=== PATIENT | male | born 1945 | race American Indian/Alaskan Native ===

== ENCOUNTER 2017-01-25 16:53 | Emergency (ER) | payer SELFPAY ==
[2017-01-25 17:33] LABS: Urine Drugs of Abuse Note Disclamer
[2017-01-25 17:41] LABS: Bilirubin,Urine NEG (Negative); Blood,Urine NEG (Negative); Ketones,Urine NEG (Negative); Leukocyte Esterase,Urine NEG (Negative); Mucus,Urine FEW /HPF; Nitrite,Urine NEG (Negative); Urobilinogen,Urine < 2.0 mg/dL (<2.0); WBC,Urine < 1.0 /HPF (0.0-6.0)
--- NOTE | 2017-01-25 19:24 | Emergency Department Report ---
HPI - General Chief Complaint: Psych Time Seen by Provider: 01/25/17 17:39 - HPI HPI: This is a 71-year-old Afro-Tristanian male who presents the emergency department via police from a motel with the patient appears to cut kicked out and became very verbally abusive. The patient says that he is here because he has a "cold " and says that he is not sure who brought him in. However once the police were mentioned, he does admit to seeing them at the hotel although he denies being kicked out. He goes on some tangential thoughts and seems to be fixated on losing money or having money taken away from him. Family eventually came bedside and says that he has a history of schizophrenia which does appear to be consistent with his paranoid state. He denies any auditory hallucinations, suicidal or homicidal ideations. ED Past Medical Hx - Past Medical History Additional medical history: denies - Surgical History Additional Surgical History: denies - Social History Smoking Status: Current Every Day Smoker Substance Use Type: None - Medications Home Medications: Home Medications Medication Instructions Recorded Confirmed Last Taken Type Unobtainable 01/25/17 01/25/17 Unknown History ED Review of Systems ROS: Stated complaint: 1013 Other details as noted in HPI Comment: All other systems reviewed and negative Constitutional: denies: chills, fever Eyes: denies: eye pain, eye discharge, vision change ENT: denies: ear pain, throat pain Respiratory: denies: cough, shortness of breath, wheezing Cardiovascular: denies: chest pain, palpitations Gastrointestinal: denies: abdominal pain, nausea, diarrhea Genitourinary: denies: urgency, dysuria Musculoskeletal: denies: back pain, joint swelling, arthralgia Skin: denies: rash, lesions Neurological: denies: headache, weakness, paresthesias Psychiatric: other (paranoia, tangential thoughts). denies: auditory hallucinations, homicidal thoughts, suicidal thoughts Physical Exam - Physical Exam Vital Signs: Vital Signs 01/25/17 01/25/17 17:03 18:19 Temperature 98.4 F Pulse Rate 84 Respiratory 18 18 Rate Blood Pressure 167/89 O2 Sat by Pulse 100 100 Oximetry Physical Exam: GENERAL: The patient is well-developed well-nourished. HEENT: Normocephalic. Atraumatic. Extraocular motions are intact. Patient has moist mucous membranes. Pupils equal reactive to light bilaterally. NECK: Supple. Trachea is midline. CHEST/LUNGS: Clear to auscultation. There is no respiratory distress noted. HEART/CARDIOVASCULAR: Regular. There is no tachycardia. There is no gallop rub or murmur. ABDOMEN: Abdomen is soft, nontender. Patient has normal bowel sounds. There is no abdominal distention. SKIN: Skin is warm and dry. NEURO: The patient is awake, alert. The patient is cooperative. The patient has no focal neurologic deficits. The patient has normal speech. MUSCULOSKELETAL: There is no tenderness or deformity. There is no limitation range of motion. There is no evidence of acute injury. PSYCH: Patient has pressured speech and tangential thoughts. ED Course Vital Signs 01/25/17 01/25/17 17:03 18:19 Temperature 98.4 F Pulse Rate 84 Respiratory 18 18 Rate Blood Pressure 167/89 O2 Sat by Pulse 100 100 Oximetry ED Medical Decision Making - Lab Data Result diagrams: 01/25/17 19:18 01/25/17 19:18 - Medical Decision Making 71-year-old male presents via PD after he was allegedly kicked out of a motel and became verbally aggressive. In the emergency department, the patient is able to answer some questions appropriately but does display some severe paranoia about losing money or getting money taken away. He has pressured speech and appears to have tangential thoughts. Family was able to give some history and he appears to have a history of schizophrenia. While he does not have any suicidal or homicidal ideations, patient does not appear to be in a state of mind where he would be able to take care of himself and complete his ADLs. For this reason the patient has been made a 1013 for psychosis. His labs are mostly unremarkable other than some urine drug screen positive for barbituates. Vital signs stable throughout his ED course. Patient is medically cleared for psychiatric placement. - Differential Diagnosis schizophrenia, schizoaffective, bipolar disorder, depression, substance abu Critical Care Time: No Critical care attestation.: If time is entered above; I have spent that time in minutes in the direct care of this critically ill patient, excluding procedure time. ED Disposition Clinical Impression: Psychosis Qualifiers: Psychosis type: other Qualified Code(s): F28 - Other psychotic disorder not due to a substance or known physiological condition Hypertension Qualifiers: Hypertension type: essential hypertension Qualified Code(s): I10 - Essential ( primary) hypertension Disposition: DC/TX PSY HOSP/PSY UNIT Is pt being admited?: No Condition: Stable Instructions: Hypertension (ED) Referrals: PRIMARY CARE, [Primary Care Provider] - 3-5 Days Time of Disposition: 21:07
[2017-01-25 19:48] LABS: Basophils % (Auto) 0.9 % (0.0-1.8); Eosinophils % (Auto) 0.5 % (0.0-4.3); Hematocrit 37.5 % (35.5-45.6); Hemoglobin 12.3 gm/dl (11.8-15.2); Mean Corpuscular HGB Conc 33 % (32-34); Mean Corpuscular Hemoglobin 28 pg (28-32); Mean Corpuscular Volume 87 fl (84-94); Platelet Count 183 K/mm3 (140-440); Red Blood Count 4.33 M/mm3 (3.65-5.03); Red Cell Distribution Width 15.4 % (13.2-15.2); White Blood Count 7.7 K/mm3 (4.5-11.0)
[2017-01-25 19:54] LABS: Anion Gap 20 mmol/L; Blood Urea Nitrogen 8 mg/dL (9-20); Calcium 9.1 mg/dL (8.4-10.2); Carbon Dioxide 25 mmol/L (22-30); Chloride 101.3 mmol/L (98-107); Glucose 112 mg/dL (75-100); Potassium 4.1 mmol/L (3.6-5.0); Sodium 142 mmol/L (137-145)
--- NOTE | 2017-01-26 16:00 | Consultation ---
History of Present Illness - Reason for Consult Consult date: 01/26/17 Reason for consult: Psychiatry Follow-up Requesting physician: DINORA CUMMINGS - Chief Complaint Chief complaint: "I don't need to be here" - History of Present Psychiatric Illness This is a 71-year-old Afro-Nepalese male who presents the emergency department via police from a motel with the patient appears to cut kicked out and became very verbally abusive. Today patient is loud and uncooperative during assessment. He did state that he was asked to leave his hotel and also he stated that his money is "messed" up currently. After telling me that, he stated , "Leave me alone." Also, the patient stated, "I told the other anupama I had a cold and that's why I came to the hospital." After making that statement, he would not answer anymore of my questions. He turned his head away from me and started talking to the wall. Per the set staff fitter, no behavior and distress noted. No gestures of SI/HI's Medications and Allergies Allergies Allergy/AdvReac Type Severity Reaction Status Date / Time No Known Allergies Allergy Unverified 01/25/17 17:14 Home Medications Medication Instructions Recorded Confirmed Last Taken Type Unobtainable 01/25/17 01/25/17 Unknown History Mental Status Exam - Vital signs Last Vital Signs Temp 98 F 01/26/17 07:09 Pulse 92 H 01/25/17 19:39 Resp 18 01/26/17 10:00 BP 144/82 01/26/17 07:09 Pulse Ox 97 01/26/17 10:00 - Exam Narrative exam: ROS (+) psychosis MSE: Appearance: Disheveled, uncooperative Behavior: poor eye contact Speech: loud rate and tone, mumbles Mood: "why you ask" Affect: blunted, mood congruent Thought Process: tangential Thought Content: no gestures of SI/HI's and AVH's Motor Activity: lying down Cognition: a/o x2 Insight: poor Judgment: poor Results Result Diagrams: 01/25/17 19:18 01/25/17 19:18 Abnormal lab results 01/25/17 01/25/17 Range/Units 19:18 19:18 RDW 15.4 H (13.2-15.2) % [place] % (Auto) 7.8 H (0.0-7.3) % Seg Neutrophils % 75.8 H (40.0-70.0) % BUN 8 L (9-20) mg/dL Glucose 112 H (75-100) mg/dL All other labs normal. Assessment and Plan Assessment and plan: Impression: Unspecified Psychotic DO. This is a 71-year-old Afro-Nepalese male who presents the emergency department via police from a motel with the patient appears to cut kicked out and became very verbally abusive. Today patient is loud and uncooperative during assessment. He did state that he was asked to leave his hotel and also he stated that his money is "messed" up now. After telling me that, he stated, "Leave me alone." Also, the patient stated, "I told the other anupama I had a cold and that's why I came to the hospital." No gestures of SI/HI's. DD: Schizophrenia, Schizoaffective DO Recommendation/Plan: Continue 1013 with placement to inpatient psy services. Start Zyprexa 5 mg PO HS for psychosis and Cogentin 0.5 mg PO HS for EPS prevention. Discussed possible metabolic side effects of Zyprexa with patient.
--- NOTE | 2017-01-26 16:37 | Event Note ---
Date: 01/26/17 Patient denies any psy inpatient or outpatient services. Also he denies a fam hx of psy.
[2017-01-26] MEDS: COGENTIN PO SCH (22:20)
--- NOTE | 2017-01-27 11:32 | Progress Note ---
Subjective - Reason for Consult Consult date: 01/27/17 Reason for consult: psychiatric follow up - Chief Complaint Chief complaint: "GET out" This is a 71-year-old Afro-Cameroonian male who presented to the emergency department via police from a motel. Today patient is loud and uncooperative during assessment. He repeatedly stated to get out and leave him alone, "I have a cold." Mental Status Exam - Vital signs Last Vital Signs Temp 98 F 01/26/17 07:09 Pulse 92 H 01/25/17 19:39 Resp 18 01/26/17 10:00 BP 144/82 01/26/17 07:09 Pulse Ox 97 01/26/17 10:00 - Exam Orientation: place, person Affect: agitated Mood: congruent with affect Thought content: paranoia Thought Process: Tangential Perceptions: other (patient uncooperative with exam) Speech: pressured Concentration: distractible Motor activity: restless Level of consciousness: alert Appetite: decreased Interaction: uncooperative Assessment and Plan Impression: Psychosis, belligerent/uncooperative DD: Schizophrenia, Schizoaffective DO Recommendation/Plan: Continue 1013 with placement to inpatient psy services. Continue Zyprexa 5 mg PO HS for psychosis and Cogentin 0.5 mg PO HS for EPS prevention.
[2017-01-27] MEDS: COGENTIN PO SCH (22:45)
--- NOTE | 2017-01-28 08:47 | Progress Note ---
Subjective - Reason for Consult Consult date: 01/28/17 Reason for consult: Psychiatry Follow-up - Chief Complaint Chief complaint: "I don't want to talk" This is a 71-year-old Afro-Togolese male who presented to the emergency department via police from a motel. Today patient is loud, belligerent, and uncooperative during assessment. He continues to talk about having a "cold" and no one is doing anything about it. He stated, I don't take psy medications and leave me alone." He refused to talk after that statement. No gestures of SI/HI' s. When I walked in his room he was talking to himself, possible responding to internal stimuli. Patient refused his psy medications last night. Mental Status Exam - Vital signs Last Vital Signs Temp 98 F 01/26/17 07:09 Pulse 92 H 01/25/17 19:39 Resp 18 01/26/17 10:00 BP 144/82 01/26/17 07:09 Pulse Ox 97 01/26/17 10:00 - Exam Narrative exam: MSE: Appearance: Disheveled, uncooperative Behavior: poor eye contact Speech: loud rate and tone Mood: "nothing is wrong with me" Affect: agitated Thought Process: tangential Thought Content: no gestures of SI/HI's and AVH's Motor Activity: lying down Cognition: a/o x2 Insight: poor Judgment: poor Assessment and Plan Impression: This is a 71-year-old Afro-Togolese male who presented to the emergency department via police from a motel. Today patient is loud, belligerent , and uncooperative during assessment. He continues to talk about having a "cold " and no one is doing anything about it. He stated, I don't take psy medications and leave me alone." Refused medications last night. No gestures of SI/HI's. Could not complete MMSE with patient, he refused to participate. Collateral Information from Maylin Yung [phone] - Per his niece, the patient has been to [place] [id number]. She stated that he has never been complaint with his psy medications. Also, she is the patient's payee. Recommendation/Plan: Continue 1013 with placement to inpatient psy services. Continue Zyprexa 5 mg PO HS for psychosis and Cogentin 0.5 mg PO HS for EPS prevention. Give niece a call prior to patient being transported to the inpatient setting.
[2017-01-28] MEDS: COGENTIN PO SCH (23:24)
--- NOTE | 2017-01-29 12:07 | Progress Note ---
Subjective - Reason for Consult Consult date: 01/29/17 Reason for consult: psychiatric follow up - Chief Complaint Chief complaint: "Get out" This is a 71-year-old Afro-Palauan male who presented to the emergency department via police from a motel. Today patient is loud, belligerent, and uncooperative during assessment. He began yelling and proceeded to get out of bed when I entered the room. He continued to yell for a minute or so following my exit. There was no display of physical aggression. He took medications last night. Mental Status Exam - Vital signs Last Vital Signs Temp 98.4 F 01/29/17 09:04 Pulse 96 H 01/29/17 09:04 Resp 18 01/29/17 09:57 BP 159/87 01/29/17 09:04 Pulse Ox 98 01/29/17 09:57 - Exam Narrative exam: Appearance: Disheveled Behavior: poor eye contact, uncooperative Speech: loud rate and tone Mood: angry Affect: agitated Thought Process: tangential Thought Content: unable to assess Motor Activity: no abnormal movements observed Cognition: a/o x2 Insight: poor Judgment: poor Assessment and Plan Impression: Psychosis, belligerent/uncooperative DD: Schizophrenia, Schizoaffective DO Recommendation/Plan: Continue 1013 with placement to inpatient psy services. Continue Zyprexa 5 mg PO HS for psychosis and Cogentin 0.5 mg PO HS for EPS prevention.
[2017-01-29] MEDS: COGENTIN PO SCH (22:07)
[2017-01-30] MEDS: COGENTIN PO SCH (22:05)
--- NOTE | 2017-01-31 08:07 | Progress Note ---
Subjective - Reason for Consult Consult date: 01/31/17 Reason for consult: Psychiatry Follow-up - Chief Complaint Chief complaint: "What do you want" This is a 71-year-old Afro-Filipino male who presented to the emergency department via police from a motel. Today patient started yelling when I arrived to his room. He continues to state, "I came here to treat a cold." Patient refused to answer anymore questions. Per RN notes, not distress or behavior issues overnight. Patient took his psy medications last night. Mental Status Exam - Vital signs Last Vital Signs Temp 98.4 F 01/31/17 00:00 Pulse 68 01/31/17 00:00 Resp 18 01/31/17 00:00 BP 138/90 01/31/17 00:00 Pulse Ox 99 01/31/17 00:00 - Exam Narrative exam: MSE: Appearance: Disheveled, uncooperative Behavior: poor eye contact Speech: loud rate and tone Mood: "what do you want" Affect: agitated Thought Process: tangential Thought Content: no gestures of SI/HI's and AVH's Motor Activity: lying down Cognition: a/o x2 Insight: poor Judgment: poor Assessment and Plan Impression: This is a 71-year-old Afro-Filipino male who presented to the emergency department via police from a motel. Today patient started yelling when I arrived to his room. He continues to state, "I came here to treat a cold. " No gestures of SI/HI's and AVH's. Collateral Information from Jazmyne Dilshad [phone] - Per his niece, the patient has been to [place] [address]. She stated that he has never been complaint with his psy medications. Also, she is the patient's payee. Recommendation/Plan: Continue 1013 with placement to inpatient psy services. Continue Zyprexa 5 mg PO HS for psychosis and Cogentin 0.5 mg PO HS for EPS prevention. Give niece a call prior to patient being transported to the inpatient setting.
[2017-02-01] MEDS: COGENTIN PO SCH ×3 (00:49→22:40)
--- NOTE | 2017-02-01 08:49 | Progress Note ---
Subjective - Reason for Consult Consult date: 02/01/17 Reason for consult: Psychiatry Follow-up - Chief Complaint Chief complaint: "How are you" This is a 71-year-old Afro-Togolese male who presented to the emergency department via police from a motel. Today patient is calm and cooperative during assessment. This is the first time that he would allow me to talk with him. He stated that he wanted more food to eat, because he was "hungry." He still stated that he came to [facility] to treat a "cold." He stated that his niece Maylin Yung is his payee. He denies any side effects from his psy medications. He denies SI/HI's, AVH's, sleep disturbance, depression, or a poor appetite. No reports of erratic behavior overnight. Mental Status Exam - Vital signs Last Vital Signs Temp 98.8 F 01/31/17 22:00 Pulse 78 01/31/17 22:00 Resp 18 01/31/17 22:00 BP 134/62 01/31/17 22:00 Pulse Ox 100 01/31/17 22:00 - Exam Narrative exam: MSE: Appearance: calm, cooperative Behavior: good eye contact Speech: regular rate and tone Mood: "okay" Affect: flat Thought Process: circumstantial Thought Content: denies SI/HI's and AVH's Motor Activity: ambulatory Cognition: a/o x2 Insight: limited Judgment: limited Assessment and Plan Impression: This is a 71-year-old Afro-Togolese male who presented to the emergency department via police from a motel. Today patient is calm and cooperative during assessment. This is the first time that he would allow me to talk with him. He stated that he wanted more food to eat, because he was "hungry." He still stated that he came to [facility] to treat a "cold." He denies SI/ HI's and AVH's. Collateral Information from Maylin Yung [phone] - Per his niece, the patient has been to [place] [id number]. She stated that he has never been complaint with his psy medications. Also, she is the patient's payee. Recommendation/Plan: Continue 1013 with placement to inpatient psy services. Continue Zyprexa 5 mg PO HS for psychosis and Cogentin 0.5 mg PO HS for EPS prevention. Give niece a call prior to patient being transported to the inpatient setting.
--- NOTE | 2017-02-02 08:07 | Progress Note ---
Subjective - Reason for Consult Consult date: 02/02/17 Reason for consult: Psychiatry Follow-up - Chief Complaint Chief complaint: "I want to go to the hotel" This is a 71-year-old Afro-Micronesian male who presented to the emergency department via police from a motel. Today patient is calm and cooperative during assessment. Patient smell like urine during our conversation. He stated, "I took a shower last night." He want to be discharged so he can return to a motel locally. This is the same motel that kicked him off their property because of his behavior prior to being admitted to [facility]. Also, he stated that his "cold" has been cured. He denies SI/HI's, AVH's, sleep disturbance, or being depressing. Mental Status Exam - Vital signs Last Vital Signs Temp 97.6 F 02/01/17 20:48 Pulse 77 02/01/17 20:48 Resp 17 02/01/17 20:48 BP 130/69 02/01/17 20:48 Pulse Ox 99 02/01/17 20:48 - Exam Narrative exam: MSE: Appearance: calm, cooperative Behavior: good eye contact Speech: regular rate and tone Mood: "okay" Affect: flat Thought Process: circumstantial Thought Content: denies SI/HI's and AVH's, delusional Motor Activity: ambulatory Cognition: a/o x3 Insight: limited Judgment: limited Assessment and Plan Impression: This is a 71-year-old Afro-Micronesian male who presented to the emergency department via police from a motel. Today patient is calm and cooperative during assessment. Patient smell like urine during our conversation. He stated, "I took a shower last night." He want to be discharged so he can return to a motel locally. He denies SI/HI's and AVH's. Collateral Information from Jazmyne Dilshad [phone] - Per his niece, the patient has been to [facility] x 46. She stated that he has never been complaint with his psy medications. Also, she is the patient's payee. Recommendation/Plan: Continue 1013 with pending placement to [facility]. Continue Zyprexa 5 mg PO HS for psychosis and Cogentin 0.5 mg PO HS for EPS prevention. Give niece a call prior to patient being transported to the inpatient setting.
[2017-02-02] MEDS: COGENTIN PO SCH (22:40)
[2017-02-03 10:01] VITALS: BP 145/68
== END 2017-02-03 09:56 ==
LOC: ED 16:53 → EEVIPCON 16:53 → ED 02-03 09:56
DX: F28 Other psychotic disorder not due to a substance or known physiological condition (principal); I10 Essential (primary) hypertension; F17.200 Nicotine dependence, unspecified, uncomplicated
CPT/HCPCS: 36415; 80048; 80307; 81001; 85025; 99285; G0480; 80320